=== PATIENT | female | born 1980 | race Hispanic/Latino ===

== ENCOUNTER 2020-08-19 04:25 | Emergency (ER) | payer BC ==
[~2020-08-19 04:25] MED LIST: SULF1TAB42 PO; TRAM50TA4 PO
[2020-08-19] MEDS ORDERED: KETOROLAC TROMETHAMINE 30MG/ML ONE (05:29)
== END 2020-08-19 06:41 | disposition home or self-care (01) ==
LOC: EDH 04:25
DX: M25.561 Pain in right knee (principal); Z88.8 Allergy status to other drugs, medicaments and biological substances; Z90.710 Acquired absence of both cervix and uterus; W18.39XA Other fall on same level, initial encounter; Y93.89 Activity, other specified; Y92.89 Other specified places as the place of occurrence of the external cause; Y99.8 Other external cause status
CPT/HCPCS: 29505; 73562; 81025; 96374; 99284; J1885